=== PATIENT | female | born 1945 | race Caucasian/White ===

== ENCOUNTER 2018-09-21 12:17 | Emergency (ER) | payer OTHER ==
[~2018-09-21] VITALS: Ht 172.7 cm; Wt 110.2 kg
[~2018-09-21 12:17] MED LIST: ALBU90OI INH; ALBU90OI6 INH; ASPI325B PO; AZIT250 PO; ERGO400; ESCI10 PO; HYDACE5 PO; HYDR1TAB94 PO; INDO25 PO; LEVSOD125; LIOT25; LISI5 PO; METF500 PO; NEBI10 PO; OXYC5 PO; PRED10 PO
[2018-09-21] MEDS ORDERED: Percocet 5-3251 EACH PO (14:04)
== END 2018-09-21 14:26 | disposition home or self-care (01) ==
LOC: ER 12:17
DX: M54.12 Radiculopathy, cervical region (principal); E03.9 Hypothyroidism, unspecified; M10.9 Gout, unspecified; F32.9 Major depressive disorder, single episode, unspecified; I10 Essential (primary) hypertension; I51.81 Takotsubo syndrome; I25.10 Atherosclerotic heart disease of native coronary artery without angina pectoris; J45.909 Unspecified asthma, uncomplicated; Z91.018 Allergy to other foods; Z91.041 Radiographic dye allergy status; Z79.84 Long term (current) use of oral hypoglycemic drugs; Z79.899 Other long term (current) drug therapy
CPT/HCPCS: 70486; 72125; 99283-25

== ENCOUNTER → 2020-06-12 | Outpatient (CLI) | payer OTHER ==
[~2020-06-12] MED LIST changes: +Percocet 5-3251 EACH PO
== END | disposition home or self-care (01) ==
LOC: LAB SHORT 11:29 → LAB 11:29
DX: D48.5 Neoplasm of uncertain behavior of skin (principal)
CPT/HCPCS: 88305

== ENCOUNTER 2024-10-03 08:10 | Day surgery (SDC) | payer OTHER ==
[~2024-10-03] VITALS: Ht 172.7 cm; Wt 98.4 kg
[~2024-10-03 08:10] MED LIST changes: +Balanced Salt Epinephrine Irrigation Solution 500 mL IR SCH; +Diazepam 5 MG Tab PO PRN; +Diazepam 5 MG Tab PO SCH; +Lidocaine HCl/Pf 1% 5 ML VIAL XX SCH; +Moxifloxacin HCL 0.5 MG/0.1 ML 0.4MLSYR LEFTEYE SCH; +Ondansetron 4 MG SoluTab MM PRN; +PHENYLEPHRINE\\TROPICAMIDE\\TETRACAINE OPHTHALMIC DILATING SOLN LEFTEYE PRN; +Povidone-Iodine 450 DROP/30 ML Solution LEFTEYE SCH; +Povidone-Iodine 450 DROP/30 ML Solution ONE; +Tetracaine HCl/Pf 0.5% Opth Soln 4 ml ONE
[2024-10-03] MEDS ORDERED: Diazepam 2 MG Tab ONE (08:18)
[2024-10-03] MEDS ORDERED: Diazepam 5 MG Tab ONE ×2 (08:19→08:29)
[2024-10-03] MEDS ORDERED: Glucotrol Xl10 MG (08:35)
[2024-10-03] MEDS ORDERED: METFORMIN HCL500 M3 PO (08:36)
[2024-10-03] MEDS ORDERED: ATORVALIQ20 MG/5 ML (08:36)
--- NOTE | 2024-10-03 08:42 | NUR ---
10/03/24 0842 Flavio Calvillo CALL LIGHT WITHIN REACH. PT ON CONTINOUSE PULSE OXIMETER FOR MONITORING.
--- NOTE | 2024-10-03 09:09 | NUR ---
10/03/24 0909 Anne Marie Watkins 09 133/73, HR 75, O2@ 97, RESP 16
[2024-10-03 09:18] VITALS: BP 133/76
== END 2024-10-03 09:42 | disposition home or self-care (01) ==
LOC: ORSCSDS 08:10
PROVIDERS: Student in an Organized Health Care Education/Training Program
PROC: 08RK3JZ Replacement of Left Lens with Synthetic Substitute, Percutaneous Approach (ICD-10-PCS; principal; 2024-10-03 09:30)
DX: E11.36 Type 2 diabetes mellitus with diabetic cataract (principal); J45.909 Unspecified asthma, uncomplicated; H35.30 Unspecified macular degeneration; I10 Essential (primary) hypertension; E07.9 Disorder of thyroid, unspecified; Z79.84 Long term (current) use of oral hypoglycemic drugs; Z79.899 Other long term (current) drug therapy
CPT/HCPCS: A9270; V2632